=== PATIENT | male | born 1955 | race Caucasian/White ===

== ENCOUNTER 2018-12-24 10:13 | Emergency (ER) | payer OTHER ==
[~2018-12-24] VITALS: Ht 177.8 cm; Wt 97.1 kg
[2018-12-24] MEDS ORDERED: LISI20 PO ×2 (10:35→10:42)
[2018-12-24] MEDS ORDERED: ELIQUIS5 MG PO ×2 (10:35→10:42)
[2018-12-24] MEDS ORDERED: CYCL10 PO ×2 (10:36→10:42)
[2018-12-24] MEDS ORDERED: HYDCHL25 PO ×2 (10:37→10:42)
== END 2018-12-24 10:52 | disposition home or self-care (01) ==
LOC: ER 10:13
DX: Z76.0 Encounter for issue of repeat prescription (principal); Z79.899 Other long term (current) drug therapy; I10 Essential (primary) hypertension
CPT/HCPCS: 99281